=== PATIENT | female | born 1975 | race Two or more races ===

== ENCOUNTER 2017-09-29 10:06 | Day surgery (SDC) | payer BC ==
[2017-09-29] VITALS (8 sets, daily range): BP systolic 120–135; BP diastolic 66–90
[~2017-09-29] VITALS: Ht 162.6 cm; Wt 92.1 kg
[~2017-09-29 10:06] MED LIST: cefOXitin 1gm Inj ONE; cefOXitin Sod 1 GM in D5W 55 ML IVPB ONE
--- NOTE | 2017-09-29 10:26 | Pre-Procedure Note/Attestation ---
Pre-Procedure Note/Attestation Complete Prior to Procedure Planned Procedure: not applicable Procedure Narrative: hysteroscopy dilation and curettage Indications for Procedure Pre-Operative Diagnosis: metromenorrhagia Attestation I attest that I discussed the nature of the procedure; its benefits; risks and complications; and alternatives (and the risks and benefits of such alternatives ), prior to the procedure, with the patient (or the patient's legal sales representatives). I attest that, if there was a reasonable possibility of needing a blood transfusion, the patient (or the patient's legal sales representatives) was given the [facility] standardized written summary, pursuant to the [employer]ie Benavides Blood Safety Act ([place] Health and Safety Code # 1645, as amended). I attest that I re-evaluated the patient just prior to the surgery and that there has been no change in the patient's H&P, except as documented below: BONNIE ROBERTS Sep 29, 2017 10:26
[2017-09-29] MEDS ORDERED: DiphenhydrAMINE 50mg/ml Inj IVP PRN ×2 (10:30→12:00)
[2017-09-29] MEDS ORDERED: HYDROmorphone 1mg/ml Carpuject SUBQ PRN (10:30)
[2017-09-29] MEDS ORDERED: Norco 5mg/325mg tab ORAL PRN (10:30)
[2017-09-29] MEDS ORDERED: Metoclopramide 10mg/2ml Inj IVP PRN ×2 (10:30→12:00)
[2017-09-29] MEDS ORDERED: Tylenol #3 tab (300mg/30mg) ORAL PRN (10:30)
[2017-09-29] MEDS ORDERED: FLOMAX0.4 MG ORAL (10:45)
[2017-09-29] MEDS ORDERED: IRON 100 PLUS1 EACH PO (10:45)
[2017-09-29] MEDS ORDERED: fentaNYL 100 mcg/2 mL IV ONE (11:03)
[2017-09-29] MEDS ORDERED: Midazolam 2mg/2ml Inj ONE (11:03)
[2017-09-29] MEDS ORDERED: Ketorolac 30mg Inj ONE (11:30)
[2017-09-29] MEDS ORDERED: NS Irrig 1000ml ONE (11:30)
[2017-09-29] MEDS ORDERED: LR 1000ml ONE (11:30)
[2017-09-29] MEDS ORDERED: Meperidine 50mg/ml Inj(FOR RIGORS ONLY) IV PRN (12:00)
[2017-09-29] MEDS ORDERED: Midazolam 2mg/2ml Inj IVP PRN (12:00)
[2017-09-29] MEDS ORDERED: LR 1000ml 1,000 ML IVLG SCH (12:00)
[2017-09-29] MEDS ORDERED: Ketorolac 30mg Inj IV PRN (12:00)
--- NOTE | 2017-09-29 12:00 | Anethesia Preoperative Eval ---
Anesthesia Pre-op PMH/ROS General Date of Evaluation: Sep 29, 2017 Time of Evaluation: 11:18 Anesthesiologist: Cleve ASA Score: ASA 2 Mallampati Score Class I : Soft palate, uvula, fauces, pillars visible Class II: Soft palate, uvula, fauces visible Class III: Soft palate, base of uvula visible Class IV: Only hard plate visible Mallampati Classification: Class III Surgeon: Blake Diagnosis: Menorrhagia Surgical Procedure: D&C Hysteroscopy Anesthesia History: none Family History: no anesthesia problems Allergies: Coded Allergies: No Known Allergies (Unverified , 09/29/17) Past Medical History Cardiovascular: Denies: HTN, CAD, [place], valve dz, arrhythmia, other Pulmonary: Reports: asthma - mild; Denies: COPD, LEO, other Gastrointestinal/Genitourinary: Reports: GERD; Denies: CRI, ESRD, other Neurologic/Psychiatric: Denies: dementia, CVA, depression/anxiety, TIA, other Endocrine: Denies: DM, hypothyroidism, steroids, other HEENT: Denies: cataract (L), cataract (R), glaucoma, [place] (L), [place] (R), other Hematology/Immune: Reports: anemia - mild; Denies: DVT, bleeding disorder, other Musculoskeletal/Integumentary: Denies: OA, RA, DJD, DDD, edema, other Other: obesity PMH Narrative: as above PSxH Narrative: Sinus Sx, bone grafting to L tibia Anesthesia Pre-op Phys. Exam Physician Exam Last Vital Signs Date Time Temp Pulse Resp B/P (MAP) Pulse Ox O2 Delivery O2 Flow Rate FiO2 09/29/17 10:46 Room Air 09/29/17 10:45 98.4 80 18 123/79 (94) 97 98.4 Constitutional: NAD Neurologic: CN 2-12 intact Cardiovascular: RRR, no M/R/G Respiratory: CTA Gastrointestinal: other - obesity Airway Exam Mallampati Score: Class III MO: limited Neck: short ROM: full Teeth: intact Dentures: no upper, no lower Anesthesia Pre-op A/P Labs see chart Urine Test Test 09/29/17 10:25 Urine HCG, Qualitative Negative (NEGATIVE) Studies Pre-op Studies: EKG - nsr Risk Assessment & Plan Assessment: ASA 2 Plan: GA with LMA PONV prevention Status Change Before Surgery: No Pre-Antibiotics Drug: Cefoxitin 1 gr. Given Within 1 Hr of Incision: Yes Time Given: 11:50 Anuj Bowen MD Sep 29, 2017 12:00
--- NOTE | 2017-09-29 12:23 | Brief Operative Note ---
Immediate Post Operative Note Operative Note Pre-op Diagnosis: metromenorrhagia Procedure: hysteroscopy dilation and curettage Post-op Diagnosis: same Surgeon: jamel Anesthesiologist: Jessi Anesthesia: general Specimen: yes Complications: none Condition: stable Fluids: crystalloid Estimated Blood Loss: minimal Implant(s) used?: No BONNIE ROBERTS Sep 29, 2017 12:23
--- NOTE | 2017-09-29 12:30 | Immediate Post-Op Evaluation ---
Immediate Post-Op Evalulation Immediate Post-Op Evalulation Procedure: D&C Hysteroscopy Date of Evaluation: Sep 29, 2017 Time of Evaluation: 12:29 IV Fluids: 800 Blood Products: none Estimated Blood Loss: min Urinary Output: 100 Blood Pressure Systolic: 135 Blood Pressure Diastolic: 78 Pulse Rate: 76 Respiratory Rate: 20 O2 Sat by Pulse Oximetry: 99 Temperature (Fahrenheit): 97.8 Pain Score (1-10): 1 Nausea: No Vomiting: No Complications none Patient Status: reacts, patent, none Hydration Status: adequate Anuj Bowen MD Sep 29, 2017 12:30
--- NOTE | 2017-09-29 12:31 | 48 Hour Post Anesthesia Eval ---
Post Anesthesia Evaluation Procedure: D&C Hysteroscopy Date of Evaluation: Sep 29, 2017 Time of Evaluation: 13:20 Blood Pressure Systolic: 112 0: 72 Pulse Rate: 64 Respiratory Rate: 18 Temperature (Fahrenheit): 97.6 O2 Sat by Pulse Oximetry: 98 Airway: patent Nausea: No Vomiting: No Pain Intensity: 2 Hydration Status: adequate Cardiopulmonary Status: stable Mental Status/LOC: patient returned to baseline Follow-up Care/Observations: n/a Post-Anesthesia Complications: none Follow-up care needed: ready to discharge Anuj Bowen MD Sep 29, 2017 12:31
[2017-09-29] MEDS ORDERED: D5 1/2NS 1,000 ML IV SCH (15:30)
--- NOTE | 2017-09-29 22:00 | Operative Note - Dictated ---
DATE OF OPERATION: 09/29/2017 PREOPERATIVE DIAGNOSIS: Metromenorrhagia, initially scheduled for dilation and curettage hysteroscopy and HTA, but most recently changed her mind regarding HTA. POSTOPERATIVE DIAGNOSIS: Metromenorrhagia, initially scheduled for dilation and curettage hysteroscopy and HTA, but most recently changed her mind regarding HTA. PROCEDURE: Dilation and curettage hysteroscopy. ANESTHESIA: General LMA. SURGEON: Cherise Lozano M.D. ANESTHESIOLOGIST: Anuj Bowen M.D. ESTIMATED BLOOD LOSS: Minimal. FLUIDS: Crystalloid. COMPLICATIONS: None. PROCEDURE: The patient was taken to the operating room. General anesthesia was induced. The patient was sterilely prepped and draped. A speculum was placed in the vagina. Cervix was easily dilated to an 8 Hegar dilator. Hysteroscope was placed inside the uterine cavity. Uterine cavity was without lesions with proliferative type endometrium. Bilateral tubal ostia were observed. Fractional curettage was performed. Then, hysteroscope was replaced inside the uterine cavity. No perforations were observed and uterine cavity was clean. Hysteroscope was withdrawn. All instruments were withdrawn. All instrument and lap count was correct x2 and the patient was taken to the recovery area, breathing on her own and in stable condition. PLAN: Plan is for her to get a Mirena IUD in the office. Cherise Lozano M.D. DR: LEONEL JOB#: [id number] CC:
== END 2017-09-29 14:30 | disposition home or self-care (01) ==
LOC: SUR 10:06
DX: N92.1 Excessive and frequent menstruation with irregular cycle (principal); K21.9 Gastro-esophageal reflux disease without esophagitis; R00.2 Palpitations; E66.9 Obesity, unspecified; D64.9 Anemia, unspecified
CPT/HCPCS: 58558; 81025; J0694; J1885; J2250; J2405; J3010; J7120